=== PATIENT | male | born 1970 | race Caucasian/White ===

== ENCOUNTER 2024-02-01 23:30 | Observation (INO) | payer OTHER, SELFPAY ==
[2024-02-01 20:41] VITALS: BP 155/115
[2024-02-01 20:58] LABS: % Basophils 0.7 % (0-2); % Immature Granulocytes 0.3 % (0-0.5); % Lymphocytes 52.1 % (20.5-51.1); % Monocytes 7.2 % (1.7-9.3); % Neutrophils 38.7 % (42.2-75.2); Absolute Basophils 0.1 10^3/uL (0-0.2); Absolute Eosinophils 0.1 10^3/uL (0-0.7); Absolute Lymphocytes 4.7 10^3/uL (1.2-3.4); Absolute Monocytes 0.7 10^3/uL (0.1-0.6); Absolute Neutrophils 3.5 10^3/uL (1.4-6.5); Hematocrit 48.8 % (39.0-52.0); Hemoglobin 17.8 g/dL (13.0-18.0); Mean Corp Hgb Conc. 36.5 g/dL (33.0-37.0); Mean Corpuscular Hgb 33.1 pg (27.0-31.0); Mean Corpuscular Volume 90.7 fL (80.0-94.0); Mean Platelet Volume 9.2 fL (7.4-10.4); Nucleated Red Blood Cells % 0.4 % (-); Platelet Count 266 10^3/uL (130-400); Red Blood Cell Count 5.38 10^6/uL (4.70-6.10); Red Cell Dist. Width 12.4 % (11.5-14.5)
[2024-02-01 21:04] LABS: APTT 30.8 Sec (23.4-35.0); INR 1.16; PT 14.7 Sec (11.4-14.6)
[2024-02-01 21:07] LABS: ALT (SGPT) 84 U/L (0-50); AST (SGOT) 86 U/L (17-59); Albumin 3.9 g/dl (3.5-5.0); Alkaline Phosphatase 65 U/L (38-126); Blood Urea Nitrogen 23 mg/dl (9-20); Calcium 9.1 mg/dl (8.4-10.2); Carbon Dioxide 20 mmol/L (22-30); Chloride 99 mmol/L (98-107); Glucose 146 mg/dl (70-99); Potassium 4.6 mmol/L (3.5-5.1); Sodium 133 mmol/L (135-145); Total Protein 6.5 g/dl (6.3-8.2); eGFR > 60.00
[2024-02-01 21:18] LABS: Troponin I < 0.012 ng/ml
--- NOTE | 2024-02-01 21:45 | ED.GENMED ---
History of Present Illness
General
Chief Complaint: Chest Pain
Source: patient
Exam Limitations: none
Time Seen by Provider: 02/01/24 21:30
Travel History
Have you had any contact with someone who has COVID-19?: No
Do you have any symptoms of coronavirus? Fever > 100 degrees, chills, cough, shortness of breath, sore throat, loss of taste or smell, muscle aches, or headache?: No
History of Present Illness
History of Present Illness:
This is a 53 year old male that comes in with c/o chest pain. States that in 2016 he had an MT and stents were placed. Then in November 2022 he had this same pain and symptoms that he is having now, chest tightness, SOB ad lightheadedness and bilateral
jaw pain, and they found that his stent were blocked and he had some collateral circulation. States that he feels that the pain he is having now is worse then the pain in 2022. State that the other night he was sitting watching TV and his heart
rate went up to 138. States that something is wrong. States that he had some diarrhea and lightheadedness. Denies any fever, chills, abd pain, nausea, vomiting, headache, urinary burning.
Past History
Past History
ED Past Medical History: CAD, HTN, Hypercholesterolemia, NIDDM, MT, Psychiatric (Depression) and Other (Obstructive sleep apnea, started using Cpap 3 months ago. Biopsy Kidney November 25 2022)
ED Past Surgical History: Cardiac (PTCA with stent) and Orthopedic (Bilateral carpal tunnel)
Social History
Tobacco: Former smoker
Alcohol: Occasional
Drug: None
Personal: Single
Living: alone
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
Family History
Family History: Hypertension and CAD; Negative Diabetes, Asthma or Cancer
Review of Systems
Review of Systems
All Other Systems: ROS reviewed and negative except as documented in HPI and ROS
Constitutional: Reports no symptoms; Denies fever or chills
EENT: Reports no symptoms
Respiratory: Reports trouble breathing; Denies cough
Cardiac: Reports chest pain
ABD/GI: Reports diarrhea; Denies abdominal pain, nausea or vomiting
: Reports no symptoms; Denies dysuria, frequency or urgency
Musculoskeletal: Reports no symptoms
Skin: Reports no symptoms
Neurological: Reports other (Lightheaded); Denies dizzy or headache
Psychiatric: Reports no symptoms
Phy Exam
General Physical Exam
General Presentation: no apparent distress
General age: appears stated age
General Skin: warm and dry
General Habitus: normal
General Mental: alert and anxious
General Hydration: appears well hydrated
ENT Exam
ENT Exam: TM's normal, pharynx normal and neck supple
Eye Exam
Eye Exam: EOMI
Cardiovascular Exam
Cardiovascular Exam: regular rate/rhythm, no edema, no murmur and normal peripheral pulses
Pulmonary Exam
Pulmonary Exam: lungs clear, no respiratory distress, no rales, chest non tender, no crackles, no rhonchi, no wheezing and no cough
Gastrointestinal Exam
Gastrointestinal Exam: normal bowel sounds, non tender, soft, no organomegaly, no pulsatile mass, non distended and other (Obese)
Musculoskeletal Exam
Musculoskeletal Exam: full ROM and no edema
Skin Exam
Skin Exam: normal color, warm/dry, no rash and no petechia
Psychiatric Exam
Psychiatric Exam: normal mood/affect
Scores
Heart Score for Chest Pain Patients
STEMI patient?: No
History: Moderately Suspicious
ECG: Normal
Age: >45 - <65 years
Risk Factors: >/= 3 Risk Factors or History of CAD
Troponin: </= Normal Limit
Heart Score for Chest Pain Patients: 4
Heart Score Risk: 20.3% MACE over next 6 weeks
Course
Orders/Labs/Results
Orders:
Orders
02/01/24 20:37
EKG [Electrocardiogram (*1)] Urgent
Reason for Study: Chest Pain
EKG- Treatment ONCE
02/01/24 20:46
Complete Blood Count/With Diff Urgent
Comprehensive Metabolic Panel Urgent
PTT Urgent
Prothrombin Time Urgent
Troponin I Urgent
02/01/24 21:44
CR Chest - 2 Views Urgent
Comment:
Reason For Exam: chest pain, SOB
02/01/24 21:52
D-Dimer Urgent
02/01/24 21:53
Nitroglycerin Sublingual [Nitrostat (Sublingual)] 0.4 mg SL NOW STA
02/01/24 22:50
Consult Cardiology [CARDIOLOGY CONSULT] Urgent
Consulting Provider: Yoshi Ray
Was physician already notified: Yes
02/01/24 22:52
Morphine Sulfate 2 mg IV NOW STA
02/01/24 22:57
Ondansetron Injectable [Zofran] 4 mg IV NOW STA
02/01/24 23:45
Electrocardiogram (*1) Urgent
Reason for Study: Chest Pain
Other Reason for Exam: Repeat with Troponin
Troponin I Urgent
Abnormal Lab Results
02/01/24
20:46
MCH 33.1 H pg
(27.0-31.0)
Absolute Lymphs (auto) 4.7 H 10^3/uL
(1.2-3.4)
Absolute Monos (auto) 0.7 H 10^3/uL
(0.1-0.6)
Neutrophils % 38.7 L %
(42.2-75.2)
Lymphocytes % 52.1 H %
(20.5-51.1)
PT 14.7 H Sec
(11.4-14.6)
Sodium 133 L mmol/L
(135-145)
Carbon Dioxide 20 L mmol/L
(22-30)
BUN 23 H mg/dl
(9-20)
Glucose 146 H mg/dl
(70-99)
AST 86 H U/L
(17-59)
ALT 84 H U/L
(0-50)
02/01/24 20:46
02/01/24 20:46
PT 14.7 with INR 1.16, PTT 30.8, Sodium slightly low. Carbon dioxide slightly low. Dehydration. glucose nonfasting. AST/ALT elevation. Troponin <0.012
Vital Signs
Initial and Last Documented VS:
Initial Vital Signs
Temp Pulse Resp BP Pulse Ox
97.8 F 109 18 155/115 97
02/01/24 20:41 02/01/24 20:41 02/01/24 20:41 02/01/24 20:41 02/01/24 20:41
Last Documented Vital Signs
Temp Pulse Resp BP Pulse Ox
97.8 F 98 19 135/93 96
02/01/24 20:41 02/01/24 23:00 02/01/24 23:00 02/01/24 23:00 02/01/24 23:00
Electric Razor Assembler consulted with Physician
Electric Razor Assembler consulted with physician?: Yes
Name of Physician Consulted: Dr. De Oliveira
MDM/Problems Addressed
Differential Diagnosis Includes:
Coronary syndrome. Angina, Anxiety
MDM/Problems Addressed:
This is a 53 year old male that comes in with c/o chest pain, bilateral jaw pain, SOB and lightheadedness. States that this is worse then in November of 2022 and we found that he had blocked stents.
Will get labs. Chest x-ray, Give Nitro for relief of pain.
Patient states that the nitro did not change the pain. Will admit patient for further evaluation. National Park Tour Guide and Hospitalist notified. Will place social media designer on Consult. Hospitalist to admit.
Repeat ECg: rate 94, NSR, Normal axis, Normal QRS, T wave inversion, III, aVF, Checked by Dr. Vyas
Chronic conditions affecting care: DM and CAD
Acute Exacerbation and/or Progression of Chronic Illness: DM and CAD
*Pulse Oximetry
Patient hypoxic: no
*EKG
Interpreted by ED Provider?: Yes
Heart Rate: 105
Rate: tachycardiac
Rhythm: sinus
Ferdinand: normal axis
Interval: normal interval
QRS Pattern: normal QRS
Ischemia: T-wave inversion (III, aVF)
*City Letter Carrier Interpretation
Rate: tachycardiac
Heart Rate: 101
Rhythm: sinus tachycardia
*Critical Care Note
Total Time (30-74mins, 75-104mins- exclusive of procedures): Not Applicable
ED Attending Note
-
Portions of this chart may have been created with voice recognition software.� Occasional wrong word or��sound alike� substitutions may have occurred due to the inherent limitations of voice recognition software.
Discharge Plan
Departure
Patient Disposition: Admit
Date of Disposition: 02/01/24
Time of Disposition: 22:52
Admit to: Telemetry
Presentation/result/management discussed w/ accepting MD/DO: Hospitalist
Patient with high blood pressure during this ER visit?: Yes
Condition: Good
Covid-19: Not Applicable
Discharge Problem:
Chest pain, Jaw pain, SOB (shortness of breath)
Interventions
Interventions:
*Risk Screen - Suicide Last Done: 02/01/24 21:47
*General Assessment Last Done: 02/01/24 21:47
*Neglect/Abuse Screening Last Done: 02/01/24 21:47
ED- Fall Risk Assessment Last Done: 02/01/24 21:47
*ED COVID-19 Vaccine History Last Done: 02/01/24 21:47
ED- Cardiac Assessment Last Done: 02/01/24 21:47
[2024-02-01 21:47] VITALS: BMI 40.5
[2024-02-01 22:17] LABS: D-Dimer 0.33 ug/mlFEU (0.00-0.50)
[2024-02-01] MEDS: NITROSTAT (SUBLINGUAL) 0.400000000000000022 MG SL (22:19)
[2024-02-01 22:20] VITALS: BP 163/111
[2024-02-01 22:21] VITALS: BP 154/107
[2024-02-01] MEDS: MORPHINE SULFATE 2 MG IV (22:55)
[2024-02-01] MEDS: ZOFRAN 4 MG IV (22:59)
[2024-02-01 23:00] VITALS: BP 135/93
--- NOTE | 2024-02-01 23:40 | HPS.HSE ---
Addendum entered and electronically signed by Bishnu Roach DO 02/02/24 00:03:
Patient seen and examined independently. Agree with findings as set forth by Marii Garcia PA-C.
Patient is a 53y M with PMH significant for ASCVD and prior instances of in-stent restenosis who presents to ED complaining of chest pain for the past few days. Patient states that his symptoms are similar to those he has experience in the past
with in-stent restenosis. He had no improvement in his pain with NTG. Pain did improve with morphine.
Ass:
ASCVD
Chest Pain
Benign Hypertension
DM-II
AURELIA on CPAP
Morbid Obesity due to excess calories
Plan:
Observe overnight for further evaluation and treatment.
Initial EKG / troponin are unremarkable - though patient reports that that has also been the case in the past, despite re-stenosis.
Continue to follow serial troponin.
Continue usual CV med regimen.
Supportive care / symptom control as needed.
Consult Cardiology for further evaluation.
Original Note:
Family Physician
-
Family Physician: Maia Smiley DO
Chief Complaint
-
Chest Pain
History of Present Illness
This is a 53 year old male with past medical history of STEMI, diabetes mellitus type II, hypertension and obesity who presents to the emergency department with chest pain, bilateral jaw pain, dizziness, and lightheadedness for 3 days. Patient
reports the pain was a 7-8/10 at its worst. He was given nitroglycerin in the emergency department with no improvement in his pain. He also was given morphine which has relieved his pain. Patient reports he experienced the same symptoms last time he
presented to the emergency department in 2022, when they found chronic occlusion of the RCA though he notes this pain is more intense than last year. He reports he experienced sweats yesterday. Patient denies fevers, chills, and dyspnea.
Medical History
Past Medical History
Past Medical History: Reports Other
Additional Past Medical History:
Coronary Artery Disease s/p RCA stent in Jun 2014 with re-stenting in January 2017
Essential Hypertension
Hyperlipidemia
Diabetes Mellitus, Type II
Obstructive Sleep Apnea
Obesity Class III
Past Surgical History: Reports Other
Additional Past Surgical History:
Bilateral Carpal Tunnel
Social History
Tobacco: Former Smoker (Quit in 2020)
Alcohol: Occasional
Family History
Family History: Not pertinent
Allergies / Home Medications
Allergies reflects when Allergies were last updated in [employer].
Home Medications with original date entered in [employer] [facility]
Allergy/Medication List:
Allergies
Allergy/AdvReac Type Severity Reaction Status Date / Time
lisinopril Allergy Tongue Verified 12/01/22 17:10
Swelling
Home Medications
aspirin 81 mg tablet,delayed release 81 mg PO DAILY ##0 07/06/14
alirocumab 75 mg/mL subcutaneous pen injector (Praluent Pen) 75 mg SC Q14D 11/25/22
amlodipine 10 mg tablet 10 mg PO DAILY 11/25/22
empagliflozin 25 mg tablet (Jardiance) 25 mg PO DAILY 11/25/22
icosapent ethyl 1 gram capsule 2 g PO BID 12/01/22
isosorbide mononitrate 30 mg tablet,extended release 24 hr 30 mg PO DAILY 30 days #30 tabs 12/03/22
metoprolol succinate 50 mg tablet,extended release 24 hr 50 mg PO HS 02/01/24
metoprolol succinate 50 mg tablet,extended release 24 hr 100 mg PO DAILY 02/01/24
rivaroxaban 2.5 mg tablet (Xarelto) 2.5 mg PO BID 02/01/24
rosuvastatin 10 mg tablet 10 mg PO HS 02/01/24
semaglutide 0.25 mg or 0.5 mg (2 mg/3 mL) subcutaneous pen injector (Ozempic) 0.5 mg SC SA 02/01/24
spironolactone 25 mg tablet 25 mg PO DAILY 02/01/24
Review of Systems
-
A 12 point ROS was completed and negative except as noted: Yes
Constitutional: Denies Fever or Chills
Respiratory: Denies Cough or Trouble Breathing
Cardiac: Reports Chest Pain
Physical Exam
Vital Signs
Vital Signs
Temp Pulse Resp BP Pulse Ox
97.8 F 98 19 135/93 96
02/01/24 20:41 02/01/24 23:00 02/01/24 23:00 02/01/24 23:00 02/01/24 23:00
Physical Exam
General: Comfortable, Conversant and Morbidly Obese
HEENT: Moist mucous membranes and Atraumatic
Respiratory: Clear and Non Labored Respirations
Cardiac: S1/S2 and Regular Rhythm
GI: Soft, Non Tender and Other (Protuberant)
Rectal: Deferred by Provider
Musculoskeletal: No Clubbing, No Cyanosis and No Edema
Skin: Warm and Dry
Neuro: Awake, Alert, Oriented and Nonfocal/grossly intact
Laboratory Results
-
02/01/24 20:46
02/01/24 20:46
Laboratory Results
PT 14.7 Sec (11.4-14.6) H 02/01/24 20:46
INR 1.16 02/01/24 20:46
APTT 30.8 Sec (23.4-35.0) 02/01/24 20:46
Total Bilirubin 1.0 mg/dl (0.2-1.3) 02/01/24 20:46
AST 86 U/L (17-59) H 02/01/24 20:46
ALT 84 U/L (0-50) H 02/01/24 20:46
Alkaline Phosphatase 65 U/L (38-126) 02/01/24 20:46
Troponin I < 0.012 ng/ml 02/01/24 20:46
Data Reviewed
-
Diagnostic Radiology: Image Personally Visualized and interpreted (Chest X-Ray)
Lab Data: Labs Reviewed by me
Impression/Plan
-
Chest Pain, possible Unstable Angina
-Consult Cardiology
-Continue to trend troponin
-NPO after midnight for possible cardiac cath
Coronary Artery Disease s/p RCA stent in Jun 2014 with re-stenting in January 2017
-Continue aspirin and Xarelto
-Continue isosorbide mononitrate
Essential Hypertension
-Continue amlodipine, metoprolol, and spironolactone
Hyperlipidemia
-Continue Crestor
-Patient maintained on icosapent ethyl and Praluent Pen as outpatient
Diabetes Mellitus, Type II
-Check HgbA1c
-Continue Jardiance
-Patient maintained on Ozempic as outpatient
Obstructive Sleep Apnea
-Patient reports using CPAP at home, but declined order for CPAP during hospitalization
Obesity Class III
-Affects all aspects of care
DVT proph: Xarelto
Code Status: Full Code
[2024-02-02] VITALS (12 sets, daily range): BP systolic 115–167; BP diastolic 67–111; BMI 40.5; BMI 39.6
[2024-02-02 00:37] LABS: Troponin I < 0.012 ng/ml
[2024-02-02] MEDS: TYLENOL 650 MG PO ×2 (01:53→20:49)
[2024-02-02 06:51] LABS: Hematocrit 45.5 % (39.0-52.0); Mean Corp Hgb Conc. 35.2 g/dL (33.0-37.0); Mean Corpuscular Hgb 32.9 pg (27.0-31.0); Mean Corpuscular Volume 93.6 fL (80.0-94.0); Mean Platelet Volume 9.4 fL (7.4-10.4); Platelet Count 222 10^3/uL (130-400); Red Blood Cell Count 4.86 10^6/uL (4.70-6.10); Red Cell Dist. Width 12.5 % (11.5-14.5); White Blood Cell Count 8.6 10^3/uL (4.8-10.8)
[2024-02-02 07:05] LABS: Blood Urea Nitrogen 21 mg/dl (9-20); Calcium 8.2 mg/dl (8.4-10.2); Carbon Dioxide 26 mmol/L (22-30); Chloride 101 mmol/L (98-107); Estimated Creatinine Clearance 86 ml/min; Glucose 106 mg/dl (70-99); HDL Cholesterol 36 mg/dl; Magnesium 1.8 mg/dl (1.6-2.3); Sodium 134 mmol/L (135-145); Total Cholesterol 145 mg/dl (50-199); eGFR > 60.00
[2024-02-02 07:06] LABS: Troponin I < 0.012 ng/ml
[2024-02-02 07:31] LABS: Triglyceride 1040 mg/dl (10-149)
[2024-02-02] MEDS: XARELTO PO (07:46)
--- NOTE | 2024-02-02 07:51 | CON.CAR ---
Addendum entered and electronically signed by Gene Ashford MD 02/02/24 10:10:
I saw and examined the patient.
The Associate Quality Engineer's note was reviewed and I agree with the note.
Comment: Briefly, 53-year-old man past medical history of CAD with known WOUND CARE CENTER CONSULTANT of the proximal right coronary artery filling with faint collaterals based on [facility] 11/2022 (films reviewed by me) who is presenting with chest discomfort
Describes to me jaw discomfort which is similar to his prior anginal episodes however he also has some atypical chest pain he describes as sharp stabbing pain as well as associated palpitations
Serial ECGs have been performed and there is no evidence of ischemic changes and unchanged from prior tracings
Troponin has been undetectable x 3
Explained that in the setting of a chronic total occlusion optimizing medical therapy is the best option as previously recommended during prior admission 11/2022. Reviewed that percutaneous intervention or single vessel CABG could be attempted in the
event that he fails medical management, but this should be discussed with his primary dyehouse worker.
Plan to uptitrate antianginals: increase metoprolol to 100 mg twice daily and increase Imdur to 30 mg twice daily. Consider Ranexa in the future.
Would likely benefit from tighter blood pressure control as BP has been consistently elevated here. May benefit from a diuretic but ultimately will defer to his compound filler who is working up FSGS.
Stable for discharge from my perspective, he should follow-up with his primary dyehouse worker in the next few weeks
Original Note:
Consultation
Consultation Request
Date/Time Consultation Requested: 02/01/24 at 2250
Date/Time Consultation Performed: 02/02/24 at 0737
Requesting Provider: Dr. Gordillo
Performing Provider: Dr. Ashford
Reason for Consultation: Chest pain
Medical History
-
History of Present Illness:
Patient came to [facility] last night with chest pain and cardiology has been consulted. Patient has a h/o CAD with IWMI and s/p 3.5 mm Xience to prox RCA 07/05/14. He then had recurrent UT 01/2017 showed RCA occlusion that was treated with 3.5 mm and 3.5
mm Xience to pro-mid RCA and PTCA of previously placed prox RCA stent 01/29/17. Patient then had chest pain with serially undetectable Troponin and serially unremarkable ECGs 11/2022. Patient was taken to biological lab technician and found to have a WOUND CARE CENTER CONSULTANT prox RCA by
cath 12/02/22. Patient was started on Imdur ER that admission. Patient has transitioned care to Dr. Lamb at [facility] in the last year and reports seeing her in August. He says that starting Tuesday/Tuesday he was sitting and felt his heart racing,
chest pressure and jaw pain. Overall these symptoms are similar to his symptoms with each of his previous cardiac catheterizations. He says the jaw pain is essentially constant and chest pain is fairly constant too.
PMH:
CAD
s/p Inferior UT treated with 3.5 mm Xience to prox RCA 07/05/14
s/p 3.5 mm and 3.5 mm Xience to pro-mid RCA and PTCA of previously placed prox RCA stent 01/29/17
med mgmt of WOUND CARE CENTER CONSULTANT prox RCA by cath 12/02/22
Hyperglycemia
DM 2, HgbA1c 5.2% on 08/01/23
Dyslipidemia
Hypertriglyceridemia
HTN
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
Hepatic steatosis
AURELIA
Former tobacco use
History of angioedema with lisinopril
Past Medical History
Past Medical History: Other (in HPI)
Past Surgical History: Cardiac (s/p 3.5 mm Xience to prox RCA 07/05/14, s/p 3.5 mm and 3.5 mm Xience to pro-mid RCA and PTCA of previously placed prox RCA stent 01/29/17, med mgmt of WOUND CARE CENTER CONSULTANT prox RCA by cath 12/02/22) and Orthopedic (carpal tunnel surgery)
Social History
Tobacco: Former Smoker
Alcohol: Occasional
Family History
Family History: CAD and Cancer
Allergies / Home Medications
Allergy/AdvReac Type Severity Reaction Status Date / Time
lisinopril Allergy Tongue Verified 12/01/22 17:10
Swelling
�Medication �Instructions �Recorded �Confirmed �Type
aspirin 81 mg tablet,delayed 81 mg PO DAILY ##0 07/06/14 02/01/24 Rx
release
alirocumab 75 mg/mL subcutaneous 75 mg SC Q14D 11/25/22 02/01/24 History
pen injector (Praluent Pen)
amlodipine 10 mg tablet 10 mg PO DAILY 11/25/22 02/01/24 History
empagliflozin 25 mg tablet 25 mg PO DAILY 11/25/22 02/01/24 History
(Jardiance)
icosapent ethyl 1 gram capsule 2 g PO BID 12/01/22 02/01/24 History
isosorbide mononitrate 30 mg 30 mg PO DAILY 30 days #30 tabs 12/03/22 02/01/24 Rx
tablet,extended release 24 hr
metoprolol succinate 50 mg 50 mg PO HS 02/01/24 02/01/24 History
tablet,extended release 24 hr
metoprolol succinate 50 mg 100 mg PO DAILY 02/01/24 02/01/24 History
tablet,extended release 24 hr
rivaroxaban 2.5 mg tablet (Xarelto) 2.5 mg PO BID 02/01/24 02/01/24 History
rosuvastatin 10 mg tablet 10 mg PO HS 02/01/24 02/01/24 History
semaglutide 0.25 mg or 0.5 mg (2 0.5 mg SC SA 02/01/24 02/01/24 History
mg/3 mL) subcutaneous pen injector
(Ozempic)
spironolactone 25 mg tablet 25 mg PO DAILY 02/01/24 02/01/24 History
Review of Systems
-
History Source: Patient
All other systems: Negative unless noted
Physical Exam
Vital Signs
Temp Pulse Resp BP Pulse Ox
97.8 F 86 16 138/99 94
02/01/24 20:41 02/02/24 06:15 02/02/24 06:15 02/02/24 02:00 02/02/24 06:15
GEN: NAD. AAOx3
HEENT: EOMI, MMM
LUNGS: CTA B/L without wheeze or rales
CV: Reg, S1/S2, no murmur
ABD: soft, BS+, NT, ND
EXT: No clubbing, cyanosis, lesions or edema B/L
NEURO: Gross non-focal
SKIN: Warm, dry, and pink. No rash
Lab Results
02/02/24 06:09
02/02/24 06:09
Troponin I < 0.012 ng/ml 02/02/24 06:09
Impression / Plan
-
PCP: Dr. Maia Smiley
Primary Foam Molder: Dr Silvina Lancaster at [facility] [phone].
Assessment:
Presentation with chest and jaw pressure
Serially undetectable Troponin
CAD
s/p Inferior UT treated with 3.5 mm Xience to prox RCA 07/05/14
s/p 3.5 mm and 3.5 mm Xience to pro-mid RCA and PTCA of previously placed prox RCA stent 01/29/17
med mgmt of WOUND CARE CENTER CONSULTANT prox RCA by cath 12/02/22
Hyperglycemia
DM 2, HgbA1c 5.2% on 08/01/23
Dyslipidemia
Hypertriglyceridemia
HTN
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
Hepatic steatosis
AURELIA
Former tobacco use
History of angioedema with lisinopril
ECHO 03/2022: EF 51%, mild basal inferoseptum, basal and mid inferior hypokinesis, mild LVH, trace TR, PAP 27 mmHg, trace ME
Lexiscan nuclear stress test 05/12/2022: Fixed defect in basal inferolateral, basal inferior, and apical inferior segments consistent with infarction, imaging partially improved with prone imaging suggesting component of STA, no definite evidence of
ischemia, EF calculated at 42% but visually appears normal
Plan:
-Patient came to [facility] last night with chest pain and cardiology has been consulted. Patient has a h/o CAD with IWMI and s/p 3.5 mm Xience to prox RCA 07/05/14. He then had recurrent UT 01/2017 showed RCA occlusion that was treated with 3.5 mm and 3.5
mm Xience to pro-mid RCA and PTCA of previously placed prox RCA stent 01/29/17. Patient then had chest pain with serially undetectable Troponin and serially unremarkable ECGs 11/2022. Patient was taken to biological lab technician and found to have a WOUND CARE CENTER CONSULTANT prox RCA by
cath 12/02/22. Patient was started on Imdur ER that admission. Patient has transitioned care to Dr. Zainab Lancaster at [facility] in the last year and reports seeing her in August. He says that starting Tuesday/Tuesday he was sitting and felt his heart
racing, chest pressure and jaw pain. Overall these symptoms are similar to his symptoms with each of his previous cardiac catheterizations. He says the jaw pain is essentially constant and chest pain is fairly constant too.
-When patient had UT and RCA PCI in 2013 and 2016 he had ECG changes and elevated Troponin. During his last admission for chest pain in 11/2022 he had serially undetectable Troponins and unremarkable ECGs, cath that admission showed a WOUND CARE CENTER CONSULTANT of RCA with
collateralization.
-ECG reviewed by me shows SR without acute ishcemic changes
-Recurrent chest pain in the setting of HTN. Patient reports he is working with a new compound filler for management of HTN.
-Increase Imdur ER to 30 mg BID
-Increase Toprol XL to 100 mg BID
-Continue outpatient doses of amlodipine 10 mg daily and spironolactone 25 mg daily
-Patient is on a regimen of aspirin 81 mg daily and Xarelto 2.5 mg BID as ordered by his primary dyehouse worker and he can continue with this.
-Patient will follow up with his primary dyehouse worker for consideration of ongoing management options for his WOUND CARE CENTER CONSULTANT RCA which could include higher risk attempt at PCI vs evaluation for CABG.
-Supplied work note.
-Patient can be discharged to home.
[2024-02-02 08:01] LABS: LDL Cholesterol, Direct < 30 mg/dl
[2024-02-02] MEDS: TOPROL XL 100 MG PO ×2 (09:07→20:50)
[2024-02-02] MEDS: NORVASC 10 MG PO (09:07)
[2024-02-02] MEDS: JARDIANCE 25 MG PO (09:07)
[2024-02-02] MEDS: ALDACTONE 25 MG PO (09:07)
[2024-02-02] MEDS: IMDUR (EXTENDED RELEASE) 30 MG PO ×2 (09:07→20:50)
[2024-02-02] MEDS: ASPIR LOW (ENTERIC COATED) 81 MG PO (09:07)
[2024-02-02 09:13] LABS: Glucose - Point of Care 115 mg/dl (70-99)
[2024-02-02] MEDS: XARELTO 2.5 MG PO ×2 (09:54→20:50)
[2024-02-02 12:52] LABS: Glucose - Point of Care 132 mg/dl (70-99)
[2024-02-02 13:14] LABS: Glycohemoglobin (HgbA1c) 5.8 % (4.0-5.6)
--- NOTE | 2024-02-02 14:05 | PTCARENOTE ---
Received patient from ED via stretcher. Pt AAOX3. Pox: 94% RA. NSR on manager monitoring. Call schroeder within reach. Plan of care ongoing.
--- NOTE | 2024-02-02 14:34 | W.PN.HOSP.TC ---
Today's Communication/Plan
-
Chest pain likely from HTN -- Imdur and Toprol increased
Patient stated he does not feel comfortably leaving today, cardiology mentioned it would not be unreasonable to try him on the new meds overnight and then see if he can be discharged to home tomorrow
Assessment / Plan
Assessment / Plan
Physical Exam
General: Comfortable, Conversant and Morbidly Obese
HEENT: Moist mucous membranes and Atraumatic
Respiratory: Clear and Non Labored Respirations
Cardiac: S1/S2 and Regular Rhythm
GI: Soft, Non Tender and Other (Protuberant)
Musculoskeletal: No Cyanosis and No Edema
Skin: Warm and Dry
Neuro: Awake, Alert, Oriented and Nonfocal/grossly intact
Assessment/Plan
Chest Pain, possible Unstable Angina
-Consulted Cardiology, recommendations appreciated
-As per cardiology, patient's chest pain is likely related to hypertension so Beta Corinne and Nitrate medicines increased
-Continue to trend troponins
-No indication for cardiac cath at this time unless patient's EKG shows ischemic changes or troponins increase significantly
-Toprol XL increased to 100 mg BID
-Imdur ER increased to 30 mg BID
-Patient stated he does not feel comfortably leaving today, cardiology mentioned it would not be unreasonable to try him on the new meds overnight and then see if he can be discharged to home tomorrow
History of Recurrent ID
Coronary Artery Disease s/p RCA stent in Jun 2014 with re-stenting in January 2017
-Continue aspirin and Xarelto 2.5 mg BID
-Toprol XL increased to 100 mg BID
-Imdur ER increased to 30 mg BID
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
Hypertriglyceridemia
-Eat less carbs and processed food
-Follow-up with primary acetone button paster at [facility]
Essential Hypertension
-Continue amlodipine, metoprolol, and spironolactone
Hyperlipidemia
-Continue Crestor
-Patient maintained on icosapent ethyl and Praluent Pen as outpatient
Diabetes Mellitus, Type II
-HgbA1c 5.8
-Continue Jardiance
-Patient maintained on Ozempic as outpatient
Obstructive Sleep Apnea
-Patient reports using CPAP at home, but declined order for CPAP during hospitalization
Obesity Class III
-Affects all aspects of care
DVT proph: Xarelto
Code Status: Full Code
Anticipated Discharge: Within 24 hours
Subjective/Interval History
-
Date of Service: February 02, 2024
Patient was seen and examined. He reported chest pain, which may have improved.
Objective Data
-
Labs:
Laboratory Results
02/02/24
06:09
WBC 8.6
Hgb 16.0
Hct 45.5
Plt Count 222
Sodium 134 L
Potassium 4.0
Chloride 101
Carbon Dioxide 26
BUN 21 H
Creatinine 1.3
Glucose 106 H
Calcium 8.2 L
Vital Signs:
Vital Signs
Temp Pulse Resp BP Pulse Ox
98.9 F 94 18 152/86 94
02/02/24 13:33 02/02/24 13:33 02/02/24 13:33 02/02/24 13:33 02/02/24 14:08
[2024-02-02 16:08] LABS: Troponin I 0.021 ng/ml
[2024-02-02 16:33] LABS: Glucose - Point of Care 124 mg/dl (70-99)
[2024-02-02] MEDS: CRESTOR 10 MG PO (20:50)
[2024-02-02 21:41] LABS: Glucose - Point of Care 117 mg/dl (70-99)
[2024-02-02 22:07] LABS: Troponin I < 0.012 ng/ml
[2024-02-03 03:04] LABS: Hematocrit 42.2 % (39.0-52.0); Hemoglobin 15.2 g/dL (13.0-18.0); Mean Corpuscular Hgb 33.2 pg (27.0-31.0); Mean Corpuscular Volume 92.1 fL (80.0-94.0); Mean Platelet Volume 9.1 fL (7.4-10.4); Platelet Count 198 10^3/uL (130-400); Red Blood Cell Count 4.58 10^6/uL (4.70-6.10); Red Cell Dist. Width 12.3 % (11.5-14.5)
[2024-02-03 03:09] VITALS: BP 162/92
[2024-02-03 03:31] LABS: Troponin I < 0.012 ng/ml
[2024-02-03 03:47] LABS: ALT (SGPT) 47 U/L (0-50); AST (SGOT) 34 U/L (17-59); Albumin 3.1 g/dl (3.5-5.0); Alkaline Phosphatase 68 U/L (38-126); Blood Urea Nitrogen 22 mg/dl (9-20); Calcium 8.7 mg/dl (8.4-10.2); Carbon Dioxide 24 mmol/L (22-30); Chloride 104 mmol/L (98-107); Estimated Creatinine Clearance 92 ml/min; Glucose 111 mg/dl (70-99); Potassium 4.1 mmol/L (3.5-5.1); Sodium 135 mmol/L (135-145); Total Bilirubin 0.8 mg/dl (0.2-1.3); Total Protein 5.6 g/dl (6.3-8.2); eGFR > 60.00
[2024-02-03 06:00] VITALS: BMI 39.6
[2024-02-03 07:34] VITALS: BP 124/86
[2024-02-03] MEDS: ASPIR LOW (ENTERIC COATED) 81 MG PO (07:49)
[2024-02-03] MEDS: ALDACTONE 25 MG PO (07:50)
[2024-02-03] MEDS: JARDIANCE 25 MG PO (07:50)
[2024-02-03] MEDS: NORVASC 10 MG PO (07:50)
[2024-02-03] MEDS: IMDUR (EXTENDED RELEASE) 30 MG PO (07:50)
[2024-02-03] MEDS: TOPROL XL 100 MG PO (07:50)
[2024-02-03] MEDS: XARELTO 2.5 MG PO (07:50)
[2024-02-03 07:51] LABS: Glucose - Point of Care 110 mg/dl (70-99)
[2024-02-03 08:56] LABS: Troponin I < 0.012 ng/ml
--- NOTE | 2024-02-03 10:31 | W.PN.HOSP.TC ---
Today's Communication/Plan
-
Discharge today
Assessment / Plan
Assessment / Plan
Physical Exam
General: Comfortable, Conversant and Morbidly Obese
HEENT: Moist mucous membranes and Atraumatic
Respiratory: Clear and Non Labored Respirations
Cardiac: S1/S2 and Regular Rhythm
GI: Soft, Non Tender and Other (Protuberant)
Musculoskeletal: No Cyanosis and No Edema
Skin: Warm and Dry
Neuro: Awake, Alert, Oriented and Nonfocal/grossly intact
Assessment/Plan
Chest Pain
-Consulted Cardiology, recommendations appreciated
-As per cardiology, patient's chest pain is likely related to hypertension so Beta Corinne and Nitrate medicines increased
-Continue to trend troponins
-No indication for cardiac cath at this time unless patient's EKG shows ischemic changes or troponins increase significantly
-Toprol XL increased to 100 mg BID
-Imdur ER increased to 30 mg BID
-Okay to discharge today, as per cardiology
History of Recurrent VT
Coronary Artery Disease s/p RCA stent in Jun 2014 with re-stenting in January 2017
-Continue aspirin and Xarelto 2.5 mg BID
-Toprol XL increased to 100 mg BID
-Imdur ER increased to 30 mg BID
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
Hypertriglyceridemia
-Eat less carbs and processed food
-Follow-up with primary client liaison at [facility]
Essential Hypertension
-Continue amlodipine, metoprolol, and spironolactone
Hyperlipidemia
-Continue Crestor
-Patient maintained on icosapent ethyl and Praluent Pen as outpatient
Diabetes Mellitus, Type II
-HgbA1c 5.8
-Continue Jardiance
-Patient maintained on Ozempic as outpatient
Obstructive Sleep Apnea
-Patient reports using CPAP at home, but declined order for CPAP during hospitalization
Obesity Class III
-Affects all aspects of care
DVT proph: Xarelto
Code Status: Full Code
More than 30 minutes spent in discharge including
Final examination of the patient
Summarizing hospital stay
Instructions for continuing care to all relevant caregivers
Preparation of discharge records, prescriptions, and referral forms
Total time spent (in minutes): 35
Anticipated Discharge: Today
Subjective/Interval History
-
Date of Service: February 03, 2024
Patient was seen and examined. He reported his chest pain has improved compared to when he came in but still not completely gone.
Objective Data
-
Labs:
Laboratory Results
02/03/24 02/03/24
02:50 02:52
WBC 8.0
Hgb 15.2
Hct 42.2
Plt Count 198
Sodium 135
Potassium 4.1
Chloride 104
Carbon Dioxide 24
BUN 22 H
Creatinine 1.2
Glucose 111 H
Calcium 8.7
Total Bilirubin 0.8
AST 34
ALT 47
Alkaline Phosphatase 68
Vital Signs:
Vital Signs
Temp Pulse Resp BP Pulse Ox
98.1 F 76 16 129/86 95
02/03/24 07:34 02/03/24 07:50 02/03/24 07:34 02/03/24 07:50 02/03/24 09:37
I&O
02/02/24 02/03/24 02/04/24
06:59 06:59 06:59
Intake Total 720 / 720
Balance 720 / 720
--- NOTE | 2024-02-03 10:48 | W.DS.TRANS ---
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
-
Discharge Instructions:
Discharge Diagnosis/Procedures Chest Pain
History of Recurrent Myocardial Infarction
Coronary Artery Disease s/p RCA stent in Jun
2013 with re-stenting in January 2017
Hypertriglyceridemia
Essential Hypertension
Hyperlipidemia
Diabetes Mellitus, Type II
Obstructive Sleep Apnea
Obesity Class III
Diet Low Fat,Low Cholesterol,2 Gram Sodium,Diabetic,
Carb Controlled
Activity As tolerated
Instructions:
Stand-Alone Forms:
Changes to Home Medications: Yes
Discharge Medications:
DC Medications w/original date entered in [facility]
aspirin 81 mg tablet,delayed release 81 mg PO DAILY ##0 07/06/14
alirocumab 75 mg/mL subcutaneous pen injector (Praluent Pen) 75 mg SC Q14D High Cholesterol 11/25/22
amlodipine 10 mg tablet 10 mg PO DAILY Blood Pressure 11/25/22
empagliflozin 25 mg tablet (Jardiance) 25 mg PO DAILY Diabetes 11/25/22
icosapent ethyl 1 gram capsule 2 g PO BID High Cholesterol 12/01/22
rivaroxaban 2.5 mg tablet (Xarelto) 2.5 mg PO BID Blood Clot Prevention/Tx 02/01/24
rosuvastatin 10 mg tablet 10 mg PO HS High Cholesterol 02/01/24
semaglutide 0.25 mg or 0.5 mg (2 mg/3 mL) subcutaneous pen injector (Ozempic) 0.5 mg SC SA Diabetes 02/01/24
spironolactone 25 mg tablet 25 mg PO DAILY Fluid Retention/Swelling 02/01/24
isosorbide mononitrate 30 mg tablet,extended release 24 hr 30 mg PO BID Heart disease/condition #60 tabs 02/02/24
metoprolol succinate 100 mg tablet,extended release 24 hr (Toprol XL) 100 mg PO Q12H Heart disease/condition #60 tabs 02/02/24
Home Medication Changes
-Increased Toprol XL (metoprolol succinate) to 100 mg twice a day
-Increased Imdur ER (isosorbide mononitrate) to 30 mg twice a day
Pending Results: No
Total time spent discharging patient (in min): 35
--- NOTE | 2024-02-03 11:28 | CM ---
Met with pt at bedside
Lives alone in a 2 story home
Independent, works FT
DME - CPAP
SNF/HH - denies hx
Has ride at d/c
PCP - Dr Desmond Smiley
Pharm - [facility]
Discussed obs status
Plan - anticipate home no needs
== END 2024-02-03 12:31 | disposition home or self-care (01) ==
LOC: 3 WEST ACU 23:30
PROVIDERS: Clinical Nurse Specialist Family Health; Emergency Medicine; Physician Assistant Medical; ADMITTING PHYSICIAN Hospitalist; ATTENDING PHYSICIAN Hospitalist; CONSULT PHYSICIAN Internal Medicine Cardiovascular Disease; EMERGENCY PHYSICIAN Emergency Medicine; FAMILY PHYSICIAN Family Medicine
DX: R07.9 Chest pain, unspecified (principal); I10 Essential (primary) hypertension; Z87.891 Personal history of nicotine dependence; I25.10 Atherosclerotic heart disease of native coronary artery without angina pectoris; Z95.5 Presence of coronary angioplasty implant and graft; E78.1 Pure hyperglyceridemia; I25.2 Old myocardial infarction; E11.9 Type 2 diabetes mellitus without complications; G47.33 Obstructive sleep apnea (adult) (pediatric); E66.01 Morbid (severe) obesity due to excess calories; Z68.39 Body mass index [BMI] 39.0-39.9, adult; Z79.82 Long term (current) use of aspirin
CPT/HCPCS: 71046; 80048; 80053; 80061; 82962; 83036; 83721; 83735; 84484; 85025; 85027; 85379; 85610; 85730; 93005; 96374; 96375; 99285; G0378

== ENCOUNTER → 2024-12-20 14:33 | Outpatient (REF) | payer OTHER, SELFPAY | LOC: HWRAD 14:33 | PROVIDERS: ATTENDING PHYSICIAN Student in an Organized Health Care Education/Training Program | DX: Z87.891 Personal history of nicotine dependence (principal) | CPT/HCPCS: 71271 ==

== ENCOUNTER → 2025-02-13 12:54 | Outpatient (REF) | payer OTHER, SELFPAY | LOC: RCS 12:54 | PROVIDERS: ATTENDING PHYSICIAN Internal Medicine Cardiovascular Disease; FAMILY PHYSICIAN Student in an Organized Health Care Education/Training Program | DX: I25.10 Atherosclerotic heart disease of native coronary artery without angina pectoris (principal); R07.89 Other chest pain | CPT/HCPCS: 93306; Q9950 ==

== ENCOUNTER 2025-02-14 17:22 | Emergency (ER) | payer OTHER, SELFPAY ==
[2025-02-14 17:25] VITALS: BP 188/97
--- NOTE | 2025-02-14 21:02 | ED.GENMED ---
History of Present Illness
General
Chief Complaint: Headache
Source: patient
Exam Limitations: none
Time Seen by Provider: 02/14/25 18:31
Nursing documentation reviewed up to this point in time: agreed with
History of Present Illness
History of Present Illness:
Patient to ED wtih complaitn of left sided headache for the past month. States pain is consistently on the left side, reports pressue behind right eye. taking excedrin without improvement. Denies n/v. Denies fever/chills, recent illness. No
history of truama. Brought self to ED for eval.
Past History
Past History
ED Past Medical History: CAD, HTN, Hypercholesterolemia, NIDDM, NE, Psychiatric (Depression) and Other (Obstructive sleep apnea, started using Cpap 3 months ago. Biopsy Kidney November 25 2022)
ED Past Surgical History: Cardiac (PTCA with stent) and Orthopedic (Bilateral carpal tunnel)
Social History
Tobacco: Former smoker
Alcohol: Occasional
Drug: None
Personal: Single
Living: alone
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
Family History
Family History: Hypertension and CAD; Negative Diabetes, Asthma or Cancer
Review of Systems
Review of Systems
Allergies reviewed?: Yes
All Other Systems: ROS reviewed and negative except as documented in HPI and ROS
Constitutional: Reports no symptoms
EENT: Reports no symptoms
Respiratory: Reports no symptoms
Cardiac: Reports no symptoms
ABD/GI: Reports no symptoms
: Reports no symptoms
Musculoskeletal: Reports no symptoms
Skin: Reports no symptoms
Neurological: Reports headache
Psychiatric: Reports no symptoms
Phy Exam
General Physical Exam
General Presentation: well appearing and no apparent distress
General age: appears stated age
General Skin: warm and dry
General Habitus: normal
General Mental: alert
General Hydration: appears well hydrated
ENT Exam
ENT Exam: EOMI, TM's normal, neck supple, normocephalic and swallowing well
Eye Exam
Eye Exam: PERRL, EOMI, conjunctiva normal, globe normal and other (tonopen reading on left 21)
Neurological Exam
Neurological Exam: alert, oriented x3, CN II-XII intact, no motor deficits, speech normal and normal gait
Russel Coma Scale
Eye Opening: Spontaneous
Verbal Response: Oriented
Motor Response: Obeys Commands
GCS Total Score: 15
Musculoskeletal Exam
Musculoskeletal Exam: full ROM
Skin Exam
Skin Exam: normal color, warm/dry and no rash
Psychiatric Exam
Psychiatric Exam: normal mood/affect
Course
Orders/Labs/Results
Orders:
Orders
02/14/25 18:39
CT Head W/o Iv Contrast Urgent
Comment:
Reason For Exam: atypical head pain
Sinuses wo Contrast CT [CT Sinuses W/o Iv Contrast] Urgent
Comment:
Reason For Exam: atypical head pain
02/14/25 20:47
Tetracaine HCl [Tetracaine 0.5% Ophthalmic Solution] 1 drop .ROUTE .STK-MED ONE
02/14/25 20:52
Hydrocodone 5/APAP 325 [[place] 5/325] 1 tablet PO NOW STA
Vital Signs
Initial and Last Documented VS:
Initial Vital Signs
Temp Pulse Resp BP Pulse Ox
98.1 F 86 18 188/97 96
02/14/25 17:25 02/14/25 17:25 02/14/25 17:25 02/14/25 17:25 02/14/25 17:25
Last Documented Vital Signs
Temp Pulse Resp BP Pulse Ox
98.1 F 86 18 188/97 96
02/14/25 17:25 02/14/25 17:25 02/14/25 17:25 02/14/25 17:25 02/14/25 17:25
*Radiology
Radiology exam reviewed: radiology read reviewed
*Pulse Oximetry
SaO2: 96
Oxygen Mode of Delivery: Room air
Patient hypoxic: no
*Critical Care Note
Total Time (30-74mins, 75-104mins- exclusive of procedures): Not Applicable
Update Note
Update Note:
Patient to ED with complaitn of headache x 1 mos. No history of trauma, no recent illness. VSS, he remains afebrile. Neuro exam without concerning findings. Ct report reviewed with him. No findings to explain his symptoms. Will discharge home
and he will follow up with PCP. Given instructions on s/s to return to ED and he is agreeable to plan.
ED Attending Note
-
Portions of this chart may have been created with voice recognition software.� Occasional wrong word or��sound alike� substitutions may have occurred due to the inherent limitations of voice recognition software.
Discharge Plan
Departure
Patient Disposition: Home (Routine Discharge)
Date of Disposition: 02/14/25
Time of Disposition: 20:50
Patient with high blood pressure during this ER visit?: No
Condition: Good
Covid-19: Not Applicable
Discharge Problem:
Headache
Instructions: Headache, Adult (DC)
Prescriptions:
No Action
aspirin 81 MG tablet,delayed release (DR/EC)
81 mg PO DAILY Qty: 0 0RF
amlodipine 10 mg Tablet
10 mg PO DAILY
Praluent Pen 75 mg/mL Pen Injector
75 mg SC Q14D
Jardiance 25 mg Tablet
25 mg PO DAILY
icosapent ethyl 1 gram capsule
2 g PO BID
spironolactone 25 mg tablet
25 mg PO DAILY
rosuvastatin 10 mg tablet
10 mg PO HS
Xarelto 2.5 mg tablet
2.5 mg PO BID
Ozempic 0.25 mg or 0.5 mg (2 mg/3 mL) pen injector
0.5 mg SC SA
metoprolol succinate [Toprol XL] 100 mg tablet extended release 24 hr
100 mg PO Q12H Qty: 60 11RF
isosorbide mononitrate 30 mg tablet extended release 24 hr
30 mg PO BID Qty: 60 11RF
Referrals:
Sandra Cisneros MD [Family Provider, Family Practice] - Tomorrow
Activity Restrictions/Additional Instructions:
Return to the emergency department immediately for any changes in/worsening of your symptoms.
Interventions
Interventions:
*Risk Screen - Suicide Last Done: 02/14/25 21:23
*General Assessment Last Done: 02/14/25 21:23
*Neglect/Abuse Screening Last Done: 02/14/25 21:23
*ED- Fall Risk Assessment Last Done: 02/14/25 21:23
*Nursing Disposition Last Done: 02/14/25 21:24
ED- Neurological Assessment Last Done: 02/14/25 21:23
Discharge Date and Time
Discharge Date/Time: 02/14/25 21:24
Print Language: PRYDEINIG
[2025-02-14] MEDS: NORCO 5/325 1 TABLET PO (21:23)
== END 2025-02-14 21:24 | disposition home or self-care (01) ==
LOC: EMR 17:22
PROVIDERS: EMERGENCY PHYSICIAN Emergency Medicine; FAMILY PHYSICIAN Student in an Organized Health Care Education/Training Program
DX: R51.9 Headache, unspecified (principal); I25.10 Atherosclerotic heart disease of native coronary artery without angina pectoris; I10 Essential (primary) hypertension; E78.00 Pure hypercholesterolemia, unspecified; E11.9 Type 2 diabetes mellitus without complications; I25.2 Old myocardial infarction; G47.33 Obstructive sleep apnea (adult) (pediatric); Z82.49 Family history of ischemic heart disease and other diseases of the circulatory system; Z87.891 Personal history of nicotine dependence; Z95.5 Presence of coronary angioplasty implant and graft
CPT/HCPCS: 99284; 70450; 70486

== ENCOUNTER 2025-07-12 06:06 | Day surgery (SDC) | payer OTHER, SELFPAY ==
[2025-07-12 08:08] VITALS: BMI 43.7
[2025-07-12 08:10] VITALS: BMI 43.7
[2025-07-12 08:15] VITALS: BP 140/82
[2025-07-12 08:26] LABS: Glucose - Point of Care 138 mg/dl (70-99)
[2025-07-12 10:21] VITALS: BP 128/78
[2025-07-12 10:30] VITALS: BP 124/65
[2025-07-12 10:45] VITALS: BP 147/86
== END 2025-07-12 11:15 | disposition home or self-care (01) ==
LOC: SDS 06:06
PROVIDERS: ATTENDING PHYSICIAN Internal Medicine Gastroenterology
DX: Z12.11 Encounter for screening for malignant neoplasm of colon (principal); K63.5 Polyp of colon; K57.30 Diverticulosis of large intestine without perforation or abscess without bleeding; K64.8 Other hemorrhoids; K21.00 Gastro-esophageal reflux disease with esophagitis, without bleeding; K22.89 Other specified disease of esophagus; K21.9 Gastro-esophageal reflux disease without esophagitis; Z86.0100 Personal history of colon polyps, unspecified
CPT/HCPCS: 45385; 45380; 43239; 82962; 88305